=== PATIENT | female | born 1990 | race Caucasian/White ===

== ENCOUNTER 2021-12-24 16:56 | Emergency (ER) | payer BC ==
[~2021-12-24] VITALS: Ht 177.8 cm; Wt 89.8 kg
[2021-12-24] MEDS ORDERED: ADDERALL 20 MG20 MG (17:41)
== END 2021-12-24 18:39 | disposition home or self-care (01) ==
LOC: ER 16:56
DX: S91.112A Laceration without foreign body of left great toe without damage to nail, initial encounter (principal); X58.XXXA Exposure to other specified factors, initial encounter; Y93.01 Activity, walking, marching and hiking; Y92.480 Sidewalk as the place of occurrence of the external cause; Y99.9 Unspecified external cause status; Z88.0 Allergy status to penicillin